=== PATIENT | male | born 1965 | race African-American/Black ===

== ENCOUNTER 2018-06-11 17:01 | Emergency (ER) | payer MEDICAID, OTHER ==
[~2018-06-11] VITALS: Ht 177.8 cm; Wt 78.3 kg
[2018-06-11 17:04] VITALS: BP 98/62
== END 2018-06-11 22:45 | disposition left against medical advice (07) ==
LOC: ER 17:01
DX: S30.861A Insect bite (nonvenomous) of abdominal wall, initial encounter (principal); F17.200 Nicotine dependence, unspecified, uncomplicated; W57.XXXA Bitten or stung by nonvenomous insect and other nonvenomous arthropods, initial encounter; Y93.89 Activity, other specified; Y92.89 Other specified places as the place of occurrence of the external cause; Y99.8 Other external cause status; Z98.890 Other specified postprocedural states
CPT/HCPCS: 99281